=== PATIENT | female | born 1965 | race Caucasian/White ===

== ENCOUNTER 2020-01-11 16:27 | Outpatient (CLI) | payer OTHER, SELFPAY ==
--- NOTE | ~2020-01-11 | MM_ITS ---
EXAMINATION: MM screening marilin BI w yvette HISTORY: Screening TECHNIQUE: Craniocaudal and mediolateral oblique 3-D tomosynthesis images were obtained and synthetic 2-D images were generated. CAD analysis was submitted and interpreted. COMPARISON: Comparison to multiple prior studies sequentially, with oldest reviewed study dated 02/02. BREAST PARENCHYMAL COMPOSITION: The breasts are heterogeneously dense, which may obscure small masses . FINDINGS: There is no evidence of suspicious mass, calcification, or architectural distortion to sugg est malignancy in either breast. There has been no suspicious interval change. IMPRESSION: 1. No mammographic evidence of malignancy. 2. Recommend routine screening mammography in one year. BI-RADS Category 1: Negative Reviewed, dictated and finalized at location A.
== END 2020-01-11 16:28 | disposition home or self-care (01) ==
LOC: ANHIMG 16:30
PROVIDERS: PCP Family Medicine; Visit Provider Family Medicine
DX: Z12.31 Encounter for screening mammogram for malignant neoplasm of breast (principal)
CPT/HCPCS: 77063; 77067

== ENCOUNTER 2020-03-01 16:24 | Outpatient (RCR) | payer OTHER, SELFPAY ==
[2020-03-01 16:40] VITALS: BP_SYST 115
--- NOTE | 2020-03-01 17:19 | PTOPEVAL ---
PHYSICAL THERAPY EVALUATION AND PLAN OF CARE Thank you for referring Mariam Ferguson to [facility] [place]Note 2[place]? The patient is scheduled to be seen for therapy 1x/week for 4 weeks. Please review, sign, date and return this plan of care KINDRA. I agree with and certify that the following plan of care is medically necessary. Referring Physician Date Attending Provider: Katya Antonio, MD Evaluation Neurological History Hx Other Neurological Disorders Yes: chiari malformation; benighn intracranial hypertension Diagnosis left shoulder pain Onset 07/2019 Subjective Information Mariam is here today with Query Text:As Reported By Patient/ decreased motion of left Family shoulder. She reports that she has experienced this pain in the right shoulder so she has been trying to do the exercises on the left that she did on the right and she used her pulleys. It continues to be unimproved. She does have a history of right shoulder manipulation under manipulation. She is willing to do therapy but thinks she will need a manipulation for her left shoulder. Self Report Pain Assessment Left Shoulder(s) Reported Pain Level 4 Pain Description Aching Pain Frequency Chronic,Intermittent Lowest Pain Intensity 4 Greatest Pain Intensity 9 Pain Aggravating Factors Lifting Other Pain Aggravating Factors moving the arm around Pain Score Pain Score 4: Self Report Interventions Used Interventions Used By Clinicians Exercise,Manual Therapy Techniques Pain Relief Interventions Used By Exercise,Heat,Ice,Inactivity/ Patient Rest Upper Extremity Range of Motion Scapular/ Shoulder Range of Motion Left Shoulder Flexion - Active 130 Shoulder Flexion - Passive 145 Shoulder Abduction - Active 97 Shoulder Abduction - Passive 115 Shoulder Medial Rotation - Active T12 Query Text:Reach Behind the Back Shoulder Lateral Rotation - Active occiput Query Text:Reach Behind the Head Upper Extremity Muscle Strength Testing Scapular/Shoulder Left Shoulder Flexion Strength 3- Fair - Shoulder Abduction Strength 3- Fair - Shoulder Medial Rotation Strength 4- Good - Shoulder Lateral Rotation Strength 4- Good - Palpation trigger points noted to left
--- NOTE | 2020-03-08 11:51 | PCPTNOTE ---
Patient called and cancelled apt due to illness.
--- NOTE | 2020-03-21 11:39 | PCPTNOTE ---
Patient called & cancelled scheduled appointment this date due to illness.
--- NOTE | 2020-03-27 11:33 | PCPTNOTE ---
Patient did not show up for scheduled appointment this date.
--- NOTE | 2020-03-27 11:34 | PCPTNOTE ---
PHYSICAL THERAPY DISCHARGE NOTE Attending Provider: Katya Antonio, Patient:Mariam Ferguson Date of :1965 Patient has not returned for any further treatments since 03/01/2020, therefore she will be discharged at this time. Patient?s initial visit was on 03/01/2020 16:30 and attended a total of 1 visit. [facility] you [facility]. Please review, sign, date and return this discharge summary KINDRA. I have been updated about the patient's current status and I agree with discharge from the above service at this time. Referring Physician Date
== END 2020-05-02 15:42 | disposition home or self-care (01) ==
LOC: ANHPT 16:24
PROVIDERS: PCP Family Medicine; Visit Provider Family Medicine
DX: M25.519 Pain in unspecified shoulder (principal)
CPT/HCPCS: 97140

== ENCOUNTER 2020-03-15 08:26 | Outpatient (NON) | payer OTHER, SELFPAY ==
[2020-03-16 14:52] LABS: SARS-CoV-2 RNA PCR Negative
== END 2020-03-15 08:27 ==
LOC: ANHCOVIDDT 08:27
PROVIDERS: PCP Family Medicine; Visit Provider Family Medicine
DX: R05 Cough (principal); Z20.828 Contact with and (suspected) exposure to other viral communicable diseases
CPT/HCPCS: 87635; C9803; U0003

== ENCOUNTER 2020-03-20 13:09 | Outpatient (CLI) | payer OTHER, SELFPAY ==
--- NOTE | ~2020-03-20 | XR_ITS ---
EXAMINATION: XR chest 2V DATE: 03/20/2020 13:35 INDICATION: Cough. TECHNIQUE: Frontal and lateral views of the chest were obtained. COMPARISON: Chest 2 views 12/05/13 FINDINGS: Scattered calcified pulmonary nodules are consistent with old granulomatous disease. No ple ural effusion or pneumothorax. The heart size is normal. IMPRESSION: 1. No acute cardiopulmonary disease. Reviewed, dictated and finalized at location A. RTISING [employer]UMNIST
[2020-03-20 14:14] LABS: Basophils Absolute Auto 0.1 K/mm3 (0.0-0.1); Basophils Percent Auto 0.6 % (0.2-1.2); Eosinophils Absolute Auto 0.4 K/mm3 (0-0.3); Eosinophils Percent Auto 1.9 % (0-4.4); Hematocrit 38.3 % (37.0-47.0); Immature Granulocyte Absolute 0.11 K/mm3 (0.00-0.031); Immature Granulocyte Percent A 0.6 % (0-0.5); Lymphocytes Absolute Auto 4.72 K/mm3 (0.9-3.2); Lymphocytes Percent Auto 25.1 % (18.3-44.2); Mean Corpuscular HGB Conc 31.3 g/dl (32-36); Mean Platelet Volume 9.4 fl (7.4-10.4); Monocytes Absolute Auto 1.5 K/mm3 (0.1-0.6); Monocytes Percent Auto 8.1 % (2.6-8.5); Neutrophils Percent Auto 63.7 % (45.5-73.1); Platelet Count Result 370 k/mm3 (150-375); Red Blood Count 3.87 M/mm3 (4.2-5.4); Red Cell Distribution Width 14.2 % (11.5-14.5); White Blood Count 18.8 K/mm3 (4.5-10.0)
== END 2020-03-20 13:10 | disposition home or self-care (01) ==
LOC: ANHIMG 13:14
PROVIDERS: PCP Family Medicine; Visit Provider Family Medicine
DX: R05 Cough (principal)
CPT/HCPCS: 36415; 71046; 85025

== ENCOUNTER 2023-12-24 17:10 | Inpatient (IN) | payer MEDICARE, SELFPAY ==
--- NOTE | ~2023-12-24 | CT_ITS ---
EXAMINATION: CT abdomen pelvis wo con DATE: 12/24/2023 18:51 INDICATION: L flank pain,uti sx's TECHNIQUE: Computed tomography (CT) of the abdomen and pelvis was performed without intravenous contr ast. Automated exposure control and iterative reconstruction technique were employed. The dose-length product was 199.97 mGy-cm. COMPARISON: None. FINDINGS: Lower thorax: Unremarkable Liver: Normal. Biliary/Gallbladder: Gallbladder is normal. No bile duct dilation. Pancreas: No mass or duct dilation. Spleen: Normal. Adrenals:No mass. Kidneys: No suspicious mass, obstructing stone, or hydronephrosis. Mild bilateral periureteral strand ing. Multiple punctate left-sided nonobstructing calcifications. GI tract: No small or large bowel dilation. Normal appendix. Mesentery/Peritoneum: No ascites, mass, or free air. Retroperitoneum: No mass. Atherosclerotic abdominal aortic and/or arterial calcifications. Pelvis: Absent uterus. Partially distended urinary bladder with moderate wall thickening. Soft Tissues: Soft tissues and body wall unremarkable. Bones: No acute osseous finding. IMPRESSION: Bladder wall thickening may be secondary to inadequate distention or cystitis. Bilateral periureteral stranding could represent ascending infection in the appropriate clinical cont ext. No other acute abdominopelvic process detected. Reviewed, dictated and finalized at location K. IMPRESSION: Bladder wall thickening may be secondary to inadequate distention or cystitis. Bilateral periureteral stranding could represent ascending infection in the priscilla ropriate clinical context. No other acute abdominopelvic process detected.
[2023-12-24 17:14] VITALS: BP 120/73; PULSE 98; RESP 18; TEMP 36.3; O2SAT 97
[2023-12-24 17:38] LABS: Basophils Absolute Auto 0.2 K/mm3 (0.0-0.1); Basophils Percent Auto 0.9 % (0.2-1.2); Eosinophils Absolute Auto 0.3 K/mm3 (0-0.3); Eosinophils Percent Auto 1.5 % (0-4.4); Hematocrit 43.3 % (37.0-47.0); Hemoglobin 14.7 g/dL (12.0-15.0); Immature Granulocyte Absolute 0.05 K/mm3 (0.00-0.031); Immature Granulocyte Percent A 0.3 % (0-0.5); Lymphocytes Absolute Auto 6.24 K/mm3 (0.9-3.2); Lymphocytes Percent Auto 35.5 % (18.3-44.2); Mean Corpuscular HGB Conc 33.9 g/dl (32-36); Mean Corpuscular Hemoglobin 31.1 pg (26-34); Mean Corpuscular Volume 91.5 fl (80-100); Mean Platelet Volume 9.6 fl (7.4-10.4); Monocytes Absolute Auto 1.5 K/mm3 (0.1-0.6); Monocytes Percent Auto 8.4 % (2.6-8.5); Neutrophils Absolute Auto 9.4 K/mm3 (1.3-6.7); Neutrophils Percent Auto 53.4 % (45.5-73.1); Platelet Count Result 369 k/mm3 (150-375); Red Blood Count 4.73 M/mm3 (4.2-5.4); Red Cell Distribution Width 14.8 % (11.5-14.5); White Blood Count 17.6 K/mm3 (4.5-10.0)
[2023-12-24 17:53] LABS: Alanine Aminotransferase 10 U/L (6-35); Albumin Level 4.1 g/dL (3.5-5.1); Alkaline Phosphatase 96 U/L (38-126); Anion Gap 10 mmol/L (4-12); Aspartate Amino Transferase 15 U/L (14-36); Bilirubin,Total 0.3 mg/dL (0.2-1.3); Blood Urea Nitrogen 5 mg/dL (7-17); Calcium 8.9 mg/dL (8.4-10.2); Carbon Dioxide 26 mmol/L (22-30); Chloride 101 mmol/L (98-107); Estimated CRCL calculation 68 ml/min; Estimated Glomerular Filt Rate > 60; Glucose 121 mg/dL (65-110); Potassium 2.9 mmol/L (3.4-5.0); Sodium 137 mmol/L (137-145)
--- NOTE | 2023-12-24 18:18 | ED.ABDPAIN ---
HPI - Abdominal Pain General Chief Complaint: Abdominal Pain <KIMBERLEY Camarillo Last Filed: 12/24/23 18:22> Stated Complaint: left flank pain, hematuria <KIMBERLEY Camarillo Last Filed: 12/24/23 18:22> Time Seen by Provider: 12/24/23 18:18 <KIMBERLEY Camarillo Last Filed: 12/24/23 18:22> Focused HPI: Patient is a 58 y/o female who presents to the ED with c/o L flank pain. Patient reports having pain in her left flank region for the past 3 days. She also reports having dysuria, significant discomfort with urination. She noticed a small amount of blood in her urine yesterday. Has been taking ibuprofen for the pain without much relief. Denies N/V, new diarrhea, constipation, fevers. Denies hx of kidney stones. GENERAL: Appears older than stated age, well-nourished, and in no acute distress. HEAD: Normocephalic, atraumatic. ENT: Edentulous. CHEST: Clear to auscultation. ?No respiratory distress. HEART: Regular rate and rhythm.? ABD: TTP in suprapubic region. +CVA tenderness on L. NEURO: ?Alert and oriented x3. Patient screened in triage and initial orders placed.? ?Additional care and disposition to be based upon?diagnostic testing and treatment. <Linda Mckeon PA-C - Last Filed: 12/24/23 18:22> Source: patient <KIMBERLEY Camarillo Last Filed: 12/24/23 18:22> Mode of arrival: ambulatory <KIMBERLEY Camarillo Last Filed: 12/24/23 18:22> Limitations: no limitations <KIMBERLEY Camarillo Last Filed: 12/24/23 18:22> History of Present Illness HPI narrative: 58-year-old female presenting with dysuria and flank pain. States that for the last 3 days she has been having dysuria and she has had worsening bilateral flank pain. States it started on the left and is no spread to the right. Complains of persistent nausea decreased appetite. <Amanda Martinez MD - Last Filed: 12/26/23 14:36> Related Data Home Medications: Home Medications Medication Instructions Recorded Confirmed sertraline 100 mg tablet 100 mg PO HS 12/24/23 12/24/23 trazodone 50 mg tablet 50 mg PO HS 12/24/23 12/24/23 <Linda Mckeon PA-C - Last Filed: 12/24/23 18:22> Allergies/Adverse Reactions: Allergies Allergy/AdvReac Type Severity Reaction Status Date / Time No Known Allergies Allergy Unknown Verified 12/24/23 17:16 <Linda Mckeon PA-C - Last Filed: 12/24/23 18:22> Review of Systems Review of Systems: All systems reviewed & are unremarkable except as noted in HPI and below <Amanda Martinez MD - Last Filed: 12/26/23 14:36> [facility] Family History Family History: Family History Other Diabetes mellitus Family history of arthritis Family history of osteoarthritis Family history of seizure disorder <Linda Mckeon PA-C - Last Filed: 12/24/23 18:22> Social History Social History: Social History Smoking packs per day: 1 Smoking cigarettes per day: 20.0 Years smoked: 40 Smoking pack-years: 40.00 Smoking status: Current every day smoker Tobacco type: cigarettes Alcohol intake: former Substance use: current Substance use type: marijuana Other substance usage details: few times a week Last use: 12/24/23 Do You Feel Safe in your Home?: Yes Lack of Transportation: No Lack of Food: Never True Current Housing: I Have Housing Concerned About Future Housing: No Difficulty Paying Gas/Electric Bills: No Difficulty Paying for Meds: No Currently Unemployed: No Education: Associate Degree Difficulty w/ Childcare or Family Care: No Spiritual care concerns: No <Linda Mckeon PA-C - Last Filed: 12/24/23 18:22> Exam Narrative: GENERAL: Appears older than stated age, in no acute distress HEAD: Normocephalic, atraumatic. EY
[2023-12-24 19:25] VITALS: BP 135/86; PULSE 78; RESP 14; O2SAT 97
[2023-12-24] MEDS: HYDROcodone/acetaminophen (*CRX) 5-325 MG TABLET 1 TAB PO (19:27)
[2023-12-24] MEDS: POTASSIUM CHLORIDE 20 MEQ ER TABLET 40 MEQ PO (19:29)
[2023-12-24] MEDS: SODIUM CHLORIDE 0.9% IV 1,000 ML 999 ML IV CONT ×2 (19:30→20:43)
[2023-12-24] MEDS: KCL 20 MEQ/SW 100 ML 100 ML 50 MEQ IVPB (19:34)
[2023-12-24 19:38] LABS: Lactic Acid Reflex 1.9 mmol/L (0.7-2.0)
[2023-12-24 19:38] LABS: BEDSIDEPREGUCG Negative
[2023-12-24 19:45] LABS: Add Urine Microscopic? YES; Appearance Urine Cloudy (Clear); Bacteria Urine 2+ /hpf; Bilirubin Urine Negative (Negative); Blood Urine 2+ (Negative); Color Urine Yellow (Yellow); Glucose Urine UA Negative (Negative); Ketones Urine Negative (Negative); Leukocyte Esterase Ur 3+ LEU/UL (Negative); Mucus Urine Present /lpf; Need Manual Microscopic Reviewed; Nitrate Urine Negative (Negative); Protein Urine 1+ mg/dL (Negative); Specific Grav Ur 1.008 (1.001-1.035); Squamous Epithelial Cell Urine None Seen /hpf (Few); WBC Urine >100 /hpf (0-3)
--- NOTE | 2023-12-24 20:13 | PM.IMHP ---
H&P: HPI History of Present Illness Date/Time: 12/24/23 20:13 Chief Complaint: pain with urination Narrative: This is a 58-year-old female with past medical history significant for COPD/emphysema, tobacco dependence. Patient presents to the emergency room with several days of pain with urination, poor per orally intake, shortness of breath, chills, diarrhea. Preliminary workup was significant for urinalysis with numerous WBCs present. Patient admitted for further evaluation management and treatment. EXAMINATION: CT abdomen pelvis wo con DATE: 12/24/2023 18:51 INDICATION: L flank pain,uti sx's TECHNIQUE: Computed tomography (CT) of the abdomen and pelvis was performed without intravenous contrast. Automated exposure control and iterative reconstruction technique were employed. The dose-length product was 199.97 mGy-cm. COMPARISON: None. FINDINGS: Lower thorax: Unremarkable Liver: Normal. Biliary/Gallbladder: Gallbladder is normal. No bile duct dilation. Pancreas: No mass or duct dilation. Spleen: Normal. Adrenals:No mass. Kidneys: No suspicious mass, obstructing stone, or hydronephrosis. Mild bilateral periureteral stranding. Multiple punctate left-sided nonobstructing calcifications. GI tract: No small or large bowel dilation. Normal appendix. Mesentery/Peritoneum: No ascites, mass, or free air. Retroperitoneum: No mass. Atherosclerotic abdominal aortic and/or arterial calcifications. Pelvis: Absent uterus. Partially distended urinary bladder with moderate wall thickening. Soft Tissues: Soft tissues and body wall unremarkable. Bones: No acute osseous finding. IMPRESSION: Bladder wall thickening may be secondary to inadequate distention or cystitis. Bilateral periureteral stranding could represent ascending infection in the appropriate clinical context. No other acute abdominopelvic process detected. [facility] Family History Family History Other Diabetes mellitus Family history of arthritis Family history of osteoarthritis Family history of seizure disorder Social History Social History Smoking packs per day: 1 Smoking cigarettes per day: 20.0 Years smoked: 40 Smoking pack-years: 40.00 Smoking status: Current every day smoker Tobacco type: cigarettes Alcohol intake: former Substance use: current Substance use type: marijuana Other substance usage details: few times a week Last use: 12/24/23 Do You Feel Safe in your Home?: Yes Lack of Transportation: No Lack of Food: Never True Current Housing: I Have Housing Concerned About Future Housing: No Difficulty Paying Gas/Electric Bills: No Difficulty Paying for Meds: No Currently Unemployed: No Education: Associate Degree Difficulty w/ Childcare or Family Care: No Spiritual care concerns: No Meds Home Medications and Allergies Home Medications Medication Instructions Recorded Confirmed Type sertraline 100 mg tablet 100 mg PO HS 12/24/23 12/24/23 History trazodone 50 mg tablet 50 mg PO HS 12/24/23 12/24/23 History Allergies Allergy/AdvReac Type Severity Reaction Status Date / Time No Known Allergies Allergy Unknown Verified 12/24/23 17:16 Vital Signs Vital Signs - 24 hr 12/24/23 17:14 12/24/23 19:25 Temperature 97.4 F L Pulse Rate 98 78 Respiratory Rate 18 14 Blood Pressure 120/73 135/86 Pulse Oximetry 97 97 Oxygen Delivery Room Air Exam Const: General: comfortable, no acute distress, well developed, alert, awake and average body habitus Nutritional Appearance: average body habitus Orientation/consciousness: patient oriented x3 Other: looks older than stated age HENMT: Head: normal to inspection, normocephalic and atraumatic Ears: hearing grossly normal bilaterally Face/Nose/Sinus: normal facial exam Face and sinus: normal facial exam Eyes:
[2023-12-24] MEDS: NICOTINE (*PBKC) 21 MG PATCH 1 PATCH TRANSDERM (20:29)
[2023-12-24] MEDS: cefTRIAXone 2 GM/NS 100 ML 2 GM/100 ML BAG IVPB (21:45)
[2023-12-24 21:57] VITALS: BP 130/85; PULSE 74; RESP 21; O2SAT 97
[2023-12-24 22:20] VITALS: BP 126/88; PULSE 67; RESP 20; TEMP 36.3; O2SAT 97
[2023-12-24 22:27] VITALS: BMI 20.5
--- NOTE | 2023-12-24 22:49 | ADMGEN ---
This patient, Mariam Ferguson, was admitted to [address] [place] [address] Room 300-01. Patient/family oriented to hospital policies and general routines including ID bracelet, bed and alarms, visiting hours, pain management, procedures, bathroom and other care routines, personal items, smoking policy, room service/diet, and visiting hours. Information on how to activate the Rapid Response Team has been discussed. Patient/Family are encouraged to report perceived risks to care and to ask questions if they do not understand what they are told or what they should do.
[2023-12-25] MEDS: traZODone HCL 50 MG TABLET PO ×2 (00:04→22:00)
[2023-12-25 06:00] VITALS: BP 128/62; PULSE 67; RESP 20; TEMP 36.7; O2SAT 98
[2023-12-25] MEDS: traMADol HCL (*CRX) 50 MG TABLET PO ×2 (06:05→16:34)
[2023-12-25] MEDS: NICOTINE (*PBKC) 21 MG PATCH 1 PATCH TRANSDERM (08:46)
[2023-12-25] MEDS: cefTRIAXone 2 GM/NS 100 ML 2 GM/100 ML BAG IVPB (08:46)
[2023-12-25 11:19] VITALS: BMI 20.5
--- NOTE | 2023-12-25 12:58 | PM.IMPN ---
Progress Note: A&P Assessment and Plan (1) UTI (urinary tract infection): Code(s): N39.0 - Urinary tract infection, site not specified Status: Acute Assessment and Plan: 12/25/23: CT of the abdomen and pelvis showing bladder wall thickening consistent with cystitis, bilateral periurethral stranding representing ascending infection UA showing cloudy appearance, 1+ urine protein, 2+ urine blood, 3+ leukocyte, 6-10 urine RBC, greater than 100 urine WBC, 2+ urine bacteria. Urine and blood cultures were obtained and are pending. Continue Rocephin 2 g daily (2) Tobacco dependence: Code(s): F17.200 - Nicotine dependence, unspecified, uncomplicated Status: Acute Assessment and Plan: 12/25/23: Nicotine patch ordered (3) Anxiety: Code(s): F41.9 - Anxiety disorder, unspecified Status: Acute Assessment and Plan: 12/25/23: Continue Zoloft and trazodone 1 mg Ativan ordered prior to IV insertion as patient has lost IV access. She has very high anxiety about getting stuck with another needle. Discussed with her the necessity of IV antibiotics and patient is agreeable to IV insertion with ultrasound and use of Ativan. Time Spent With Patient Time with patient: Greater than 35 minutes Subjective Date/time seen: 12/25/23 12:58 Interval history: Interval history: This is a 58-year-old female who presented to the hospital with bilateral flank pain, dysuria, urinary frequency, urinary urgency. Workup in the hospital included an abdomen/pelvis CT which showed bladder wall thickening secondary to cystitis, bilateral Stella ureteral stranding representing ascending infection in the appropriate clinical context. Initial labs shown a white blood cell count of 17.6, potassium 2.9. UA was obtained and showed a cloudy appearance, 1+ urine protein, 2+ urine blood, 3+ leukocyte, 6-10 urine RBC, greater than 100 urine WBC, 2+ urine bacteria. Blood and urine cultures were obtained and are pending. Patient was given potassium, pain meds, IV fluids, Rocephin, and a nicotine patch while in the ED. Subjective: 12/25/23: Patient denies any fever, chills, nausea, vomiting, diarrhea, chest pain, shortness a breath, lightheadedness, dizziness, headache. She does report bilateral flank pain, dysuria, urinary frequency, urinary urgency, and lower abdominal pain. Labs and imaging were reviewed. Patient does have a an infiltrated IV and is very anxious about getting any more IVs placed. I discussed with patient that this is necessary considering she has an ascending infection that could have made it to her blood stream. She is agreeable for IV therapy to, and place a line with ultrasound guidance as long as she has something for anxiety prior. Plan discussed with bedside nursing. Review of Systems Review of Systems: All systems reviewed & are unremarkable except as noted in HPI and below Constitutional: Constitutional: Reports as per HPI and Reports no additional constitutional complaints Eyes: Eyes: Reports as per HPI and Reports no additional eye complaints ENT: Reports system reviewed and no additional complaints, except as documented and Reports as per HPI Cardiovascular: Cardiovascular: Reports as per HPI and Reports no additional cardiovascular complaints Respiratory: Respiratory: Reports as per HPI and Reports no additional respiratory complaints Gastrointestinal: Gastrointestinal: Reports as per HPI and Reports no additional gastrointestinal complaints Genitourinary: Genitourinary: Reports no additional female genitourinary complaints and Reports as per HPI Musculoskeletal: Musculoskeletal: Reports no additional musculoskeletal complaints and Reports as per HPI Integumentary/Breasts: Skin/Breast: Reports system reviewed and no additional complaints, except as docu and Reports as per HPI Neurologic: Reports system reviewed and no additional complaints, except as documented and Reports as per HPI Psy
--- NOTE | 2023-12-25 13:38 | PC.NURSE ---
Ambulated outside to smoke. Anxious. Encouraged refraining from smoking with Nicotine patch in place. Stated, I'm going out anyway. Spouse at bedside.
[2023-12-25 13:55] VITALS: BP 139/93; PULSE 68; RESP 20; TEMP 36.9; O2SAT 100
[2023-12-25 16:46] VITALS: O2SAT 100
[2023-12-25 18:53] LABS: Toxigenic C. Diff NEGATIVE (NEGATIVE)
[2023-12-25] MEDS: LOPERAMIDE HCL 2 MG CAPSULE PO (20:44)
[2023-12-25 21:22] VITALS: BP 129/48; PULSE 81; RESP 14; TEMP 36.5; O2SAT 100
[2023-12-25] MEDS: SERTRALINE HCL 50 MG TABLET 100 MG PO (22:00)
[2023-12-26] MEDS: ACETAMINOPHEN 500 MG TABLET 1000 MG PO ×2 (02:17→08:14)
[2023-12-26 05:44] VITALS: BP 110/60; PULSE 59; RESP 14; TEMP 36.2; O2SAT 98
[2023-12-26] MEDS: traMADol HCL (*CRX) 50 MG TABLET PO (08:14)
[2023-12-26] MEDS: NICOTINE (*PBKC) 21 MG PATCH 1 PATCH TRANSDERM (08:14)
[2023-12-26] MEDS: LORazepam (*CRX) 1 MG TABLET PO (08:15)
--- NOTE | 2023-12-26 08:19 | PM.IMPN ---
Progress Note: A&P Assessment and Plan (1) UTI (urinary tract infection): Code(s): N39.0 - Urinary tract infection, site not specified Status: Acute Assessment and Plan: 12/25/23: CT of the abdomen and pelvis showing bladder wall thickening consistent with cystitis, bilateral periurethral stranding representing ascending infection UA showing cloudy appearance, 1+ urine protein, 2+ urine blood, 3+ leukocyte, 6-10 urine RBC, greater than 100 urine WBC, 2+ urine bacteria. Urine and blood cultures were obtained and are pending. Continue Rocephin 2 g daily 12/26/23: Urine culture showing Gram-negative bacilli isolated on preliminary read Blood culture showing no growth to date on preliminary read Continue with Rocephin 2 g daily (2) Tobacco dependence: Code(s): F17.200 - Nicotine dependence, unspecified, uncomplicated Status: Acute Assessment and Plan: 12/25/23: Nicotine patch ordered 12/26/23: No change to current treatment plan (3) Anxiety: Code(s): F41.9 - Anxiety disorder, unspecified Status: Acute Assessment and Plan: 12/25/23: Continue Zoloft and trazodone 1 mg Ativan ordered prior to IV insertion as patient has lost IV access. She has very high anxiety about getting stuck with another needle. Discussed with her the necessity of IV antibiotics and patient is agreeable to IV insertion with ultrasound and use of Ativan. 12/25/23: No change to current treatment plan Time Spent With Patient Time with patient: 25 - 35 minutes Subjective Date/time seen: 12/26/23 08:19 Interval history: Interval history: This is a 58-year-old female who presented to the hospital with bilateral flank pain, dysuria, urinary frequency, urinary urgency. Workup in the hospital included an abdomen/pelvis CT which showed bladder wall thickening secondary to cystitis, bilateral Stella ureteral stranding representing ascending infection in the appropriate clinical context. Initial labs shown a white blood cell count of 17.6, potassium 2.9. UA was obtained and showed a cloudy appearance, 1+ urine protein, 2+ urine blood, 3+ leukocyte, 6-10 urine RBC, greater than 100 urine WBC, 2+ urine bacteria. Blood and urine cultures were obtained and are pending. Patient was given potassium, pain meds, IV fluids, Rocephin, and a nicotine patch while in the ED. 12/26/23 urine culture showing gram negative bacilli isolated on preliminary read, blood cultures showing no growth to date. Subjective: 12/25/23: Patient denies any fever, chills, nausea, vomiting, diarrhea, chest pain, shortness a breath, lightheadedness, dizziness, headache. She does report bilateral flank pain, dysuria, urinary frequency, urinary urgency, and lower abdominal pain. Labs and imaging were reviewed. Patient does have a an infiltrated IV and is very anxious about getting any more IVs placed. I discussed with patient that this is necessary considering she has an ascending infection that could have made it to her blood stream. She is agreeable for IV therapy to, and place a line with ultrasound guidance as long as she has something for anxiety prior. Plan discussed with bedside nursing. 12/26/23: Patient denies any new complaints today. She still reports anxiety however this is chronic for her. Labs reviewed. They were able to get an IV in her right arm with ultrasound guidance. Review of Systems Review of Systems: All systems reviewed & are unremarkable except as noted in HPI and below Constitutional: Constitutional: Reports as per HPI and Reports no additional constitutional complaints Eyes: Eyes: Reports as per HPI and Reports no additional eye complaints ENT: Reports system reviewed and no additional complaints, except as documented and Reports as per HPI Cardiovascular: Cardiovascular: Reports as per HPI and Reports no additional cardiovascular complaints Respiratory: Respiratory: Reports as per HPI and Reports no addition
[2023-12-26 09:14] LABS: Basophils Absolute Auto 0.2 K/mm3 (0.0-0.1); Basophils Percent Auto 1.8 % (0.2-1.2); Eosinophils Absolute Auto 0.4 K/mm3 (0-0.3); Eosinophils Percent Auto 4.8 % (0-4.4); Hematocrit 36.7 % (37.0-47.0); Hemoglobin 12.1 g/dL (12.0-15.0); Immature Granulocyte Absolute 0.01 K/mm3 (0.00-0.031); Immature Granulocyte Percent A 0.1 % (0-0.5); Lymphocytes Absolute Auto 4.04 K/mm3 (0.9-3.2); Lymphocytes Percent Auto 44.3 % (18.3-44.2); Mean Corpuscular Hemoglobin 30.9 pg (26-34); Mean Corpuscular Volume 93.9 fl (80-100); Mean Platelet Volume 9.4 fl (7.4-10.4); Monocytes Absolute Auto 0.9 K/mm3 (0.1-0.6); Monocytes Percent Auto 9.4 % (2.6-8.5); Neutrophils Absolute Auto 3.6 K/mm3 (1.3-6.7); Neutrophils Percent Auto 39.6 % (45.5-73.1); Platelet Count Result 324 k/mm3 (150-375); Red Blood Count 3.91 M/mm3 (4.2-5.4); Red Cell Distribution Width 15.2 % (11.5-14.5); White Blood Count 9.1 K/mm3 (4.5-10.0)
[2023-12-26] MEDS: cefTRIAXone 2 GM/NS 100 ML 2 GM/100 ML BAG IVPB (09:14)
[2023-12-26 09:30] LABS: Alanine Aminotransferase 10 U/L (6-35); Albumin Level 3.3 g/dL (3.5-5.1); Alkaline Phosphatase 80 U/L (38-126); Anion Gap 3 mmol/L (4-12); Aspartate Amino Transferase 15 U/L (14-36); Bilirubin,Total < 0.1 mg/dL (0.2-1.3); Blood Urea Nitrogen 5 mg/dL (7-17); Calcium 8.5 mg/dL (8.4-10.2); Carbon Dioxide 30 mmol/L (22-30); Chloride 106 mmol/L (98-107); Estimated CRCL calculation 79 ml/min; Estimated Glomerular Filt Rate > 60; Glucose 90 mg/dL (65-110); Potassium 3.9 mmol/L (3.4-5.0); Sodium 139 mmol/L (137-145)
[2023-12-26 14:00] VITALS: BP 104/50; PULSE 70; RESP 16; TEMP 36.3; O2SAT 99
[2023-12-26] MEDS: SERTRALINE HCL 50 MG TABLET 100 MG PO (20:37)
[2023-12-26 20:39] VITALS: BP 113/55; PULSE 71; RESP 16; TEMP 36.6; O2SAT 100
[2023-12-26] MEDS: traZODone HCL 50 MG TABLET PO (20:42)
[2023-12-27 06:00] VITALS: BP 104/59; PULSE 74; RESP 20; TEMP 36.5; O2SAT 97
[2023-12-27] MEDS: cefTRIAXone 2 GM/NS 100 ML 2 GM/100 ML BAG IVPB (08:02)
[2023-12-27] MEDS: NICOTINE (*PBKC) 21 MG PATCH 1 PATCH TRANSDERM (08:03)
--- NOTE | 2023-12-27 09:32 | PM.DS ---
DS: Admitting Diagnosis Discharge Date 12/27/2023 Admitting Diagnosis UTI Discharge Diagnosis (1) Acute pyelonephritis: Code(s): N10 - Acute pyelonephritis Status: Acute Plan Acute Pyelonephritis --Started on empirical ceftriaxone, continue Bactrim DS BID for discharge DS: Discharge Diagnosis Discharge Diagnosis (1) Acute pyelonephritis: Code(s): N10 - Acute pyelonephritis Status: Acute Plan Acute Pyelonephritis --Started on empirical ceftriaxone, continue Bactrim DS BID for discharge DS: Summary Hospital Course Reason for hospitalization: Acute Pyelonephritis--Treated with Ceftriaxone, discharged with Bactrim Hospital Course: Acute Pyelonephritis--CT Abd/pelvis showed bladder wall thickening consistent with cystitis, bilateral periurethral stranding representing ascending infection. UA--cloudy appearance, 1+ urine protein, 2+ urine blood, 3+ leukocyte, 6-10 urine RBC, greater than 100 urine WBC, 2+ urine bacteria. Reported left flank pain. Culture grew Ecoli, sensitive to multiple medications, including Bactrim and quinolones. Continued Bactrim for a 10 day course. Pain improving. Pyridium BID for 2 days, tylenol prn, Naproxen if not resolved Chronic diarrhea--Patient reports loose or watery stools twice a day for over a year. Unclear etiology--GI follow up Epigastric pain--Chronic, generally after meals--Has not noticed a difference when avoiding milk. Has a history of alcohol use over 10 years ago, not recently. Started a PPI BID--Follow up with GI Hypokalemia--Resolved--Diarrhea also likely contributing. Follow up BMP in 2 weeks. Anxiety--Stable--Continued Zoloft and Trazodone Time Spent with Patient Time attestation: Total time spent providing and/or coordinating discharge services: Exam Narrative: General - Awake and alert. No acute distress Eyes - PERRLA, EOM intact ENT - No thrush, No erythema Neck - No noticeable or palpable swelling Lymph Nodes - No lymphadenopathy Cardiovascular - RRR no m/r/g, no JVD Lungs: Clear to auscultation, No wheezing, use of accessory muscles, no crackles or wheezes. Skin - Skin warm and dry, no wounds or rashes Abdomen - Normal bowel sounds, abdomen soft and epigastric Extremities - No edema, cyanosis or clubbing Musculoskeletal - 5/5 strength, normal range of motion, no swollen or erythematous joints. Neurological ? Alert and oriented x 3, CN 2-12 grossly intact. Psych: Normal mood and affect DS: Data Data Completed and Pending Labs on day of discharge: Preliminary micro results at discharge 12/24/23 20:58 Blood Culture - Preliminary Blood 12/24/23 20:28 Blood Culture - Preliminary Blood Discharge Plan Discharge Attending physician on discharge: Jose Angel Pang Consulting providers: Vashti Taylor Discharging Clinician: Natali Rapp Anticipated Discharge Date/Time: 12/27/23 09:43 Patient Disposition: Home, Self-Care Activity: september shower Diet: regular Discharge Instructions: Take the antibiotic (Bactrim) for 11 more days--until prescription is gone. For pain, recommend that you taken pyridium for 2 days and tylenol as needed for pain. Avoid NSAIDs (naproxen and ibuprofen) unless your pain is still uncontrolled and then would only take a lower dose for a few days. would continue to avoid NSAIDs except for short durations since you're having gastric pain. You should follow up with your PCP in 1-2 weeks, would recommend checking having a recheck of your potassium at follow up. Patient Instructions: Antibiotic Form, Urinary Tract Infection in Women (DC), Hypokalemia (DC) Stand Alone Forms: General Discharge Information Follow-up/Referrals: Mabel,MICHAELLE Ellis [Primary Care Provider] - (Follow up in 1-2 weeks) Peter Garcia MD [Physician] - (Call the office to schedule an appointment with GI. Some insurances need a PCP referral so you can talk to them about it. ) Discharge M
--- NOTE | 2023-12-27 10:09 | P.DS_ITS ---
Bactrim for 14 days for acute pyelonephritis. Received 3 days of Ceftiraxone in the hospital. 11 more days DS: Summary Time Spent with Patient Time attestation: Total time spent providing and/or coordinating discharge services: DS: Data Data Completed and Pending Labs on day of discharge: Preliminary micro results at discharge 12/24/23 20:58 Blood Culture - Preliminary Blood 12/24/23 20:28 Blood Culture - Preliminary Blood Discharge Plan Discharge Attending physician on discharge: Jose Angel Pang Consulting providers: Vashti Taylor Discharging Clinician: Natali Rapp Anticipated Discharge Date/Time: 12/27/23 09:43 Patient Disposition: Home, Self-Care Activity: may shower Diet: regular Discharge Instructions: Take the antibiotic (Bactrim) for 11 more days--until prescription is gone. For pain, recommend that you taken pyridium for 2 days and tylenol as needed for pain. Avoid NSAIDs (naproxen and ibuprofen) unless your pain is still uncontrolled and then would only take a lower dose for a few days. would continue to avoid NSAIDs except for short durations since you're having gastric pain. You should follow up with your PCP in 1-2 weeks, would recommend checking having a recheck of your potassium at follow up. Patient Instructions: Antibiotic Form, Urinary Tract Infection in Women (DC), Hypokalemia (DC) Stand Alone Forms: General Discharge Information Follow-up/Referrals: Mabel,MICHAELLE Ellis [Primary Care Provider] - (Follow up in 1-2 weeks) Peter Garcia MD [Physician] - (Call the office to schedule an appointment with GI. Some insurances need a PCP referral so you can talk to them about it. ) Discharge Medications: New acetaminophen 500 mg Tablet 1,000 mg PO Q6H PRN (Reason: Mild Pain (1-3) Or Fever) 14 Days Qty: 60 0RF nicotine [Nicoderm CQ] 21 mg/24 hr Patch 24 Hour 1 patch transdermal DAILY Qty: 30 0RF phenazopyridine [Pyridium] 200 mg tablet 200 mg PO TID Qty: 6 0RF sulfamethoxazole-trimethoprim [Bactrim DS] 800-160 mg tablet 1 tablet PO Q12H Qty: 22 0RF naproxen 250 mg tablet 250 mg PO BID PRN (Reason: pain) Qty: 10 0RF pantoprazole 40 mg tablet,delayed release (DR/EC) 40 mg PO BID Qty: 60 1RF Continued trazodone 50 mg Tablet 50 mg PO HS sertraline 100 mg Tablet 100 mg PO HS Date of admission: 12/24/23 20:20 Primary Care Provider: MabelRhonda Admitting Provider: José Miguel Hernandez V. Attending physician on admission: Natali Rapp Condition: Stable
== END 2023-12-27 11:15 | disposition home or self-care (01) | DRG 690 ==
LOC: ANHED 19:12 → ANH3MEDSUR 21:45
PROVIDERS: Nurse Practitioner Acute Care; Physician Assistant; Admitting Provider Internal Medicine; Emergency Provider Emergency Medicine; PCP Physician Assistant; Visit Provider Nurse Practitioner Acute Care
DX: N10 Acute pyelonephritis (principal); B96.20 Unspecified Escherichia coli [E. coli] as the cause of diseases classified elsewhere; E87.6 Hypokalemia; F41.9 Anxiety disorder, unspecified; F17.210 Nicotine dependence, cigarettes, uncomplicated; J43.9 Emphysema, unspecified; R19.7 Diarrhea, unspecified
CPT/HCPCS: 36415; 74176; 80053; 81001; 81025; 83605; 83735; 85025; 87040; 87086; 87088; 87186; 87493; 96365; 99285; A9270; J0696; J3480; J7030